=== PATIENT | male | born 1965 | race Hispanic/Latino ===

== ENCOUNTER 2018-03-21 16:03 | Emergency (ER) | payer OTHER ==
[2018-03-21 16:50] LABS: BASOPHILS % (AUTO) 0.4 % (0.0-5.0); EOSINOPHILS % (AUTO) 0.4 % (0.0-8.0); HEMATOCRIT 43.2 % (42-54); LYMPHOCYTES % (AUTO) 3.8 % (21.0-51.0); MEAN CORPUSCULAR HEMOGLOBIN 30.5 pg (27.0-33.0); MEAN CORPUSCULAR HGB CONC 34.8 g/dL (32.0-36.0); MEAN CORPUSCULAR VOLUME 87.5 fL (79-99); MONOCYTES % (AUTO) 7.7 % (3.0-13.0); NEUTROPHILS % (AUTO) 87.7 % (40.0-77.0); PLATELET COUNT (AUTO) 128 K/uL (130-400); RED BLOOD CELL COUNT(AUTO) 4.93 MIL/uL (4.50-6.20); RED CELL DISTRIBUTION WIDTH 15.5 % (11.0-15.5); WHITE BLOOD COUNT (AUTO) 6.2 K/uL (4.8-10.8)
[2018-03-21 17:25] LABS: ALBUMIN 3.7 g/dL (3.5-5.0); BILIRUBIN,TOTAL 1.3 mg/dL (0.2-1.0); CREATININE 0.8 mg/dL (0.5-1.5); POTASSIUM 3.6 mmol/L (3.5-5.1); TOTAL PROTEIN, SERUM 7.2 g/dL (6.0-8.3)
[2018-03-21] MEDS ORDERED: ONDANSETRON HCL 4 MG/2 ML VIAL ONE (18:03)
[2018-03-21] MEDS ORDERED: MORPHINE SULFATE 8 MG/ML VIAL ONE (18:04)
[2018-03-21 18:07] LABS: APPEARANCE,URINE Clear (CLEAR); BILIRUBIN,URINE Negative (NEGATIVE); COLOR,URINE Yellow (YELLOW); GLUCOSE, URINE (UA) Negative (NEGATIVE); KETONES,URINE Negative (NEGATIVE); LEUKOCYTE ESTERASE ,URINE Negative (NEGATIVE); NITRATE,URINE Negative (NEGATIVE); OCCULT BLOOD,URINE Negative (NEGATIVE); PH,URINE 5.5 (5.0-8.0); PROTEIN,URINE Negative (NEGATIVE)
[2018-03-21] MEDS ORDERED: IOPAMIDOL-370 75 ML VIAL IV ONE (18:16)
== END 2018-03-21 19:28 | disposition home or self-care (01) ==
LOC: EDH 16:03
DX: K52.9 Noninfective gastroenteritis and colitis, unspecified (principal); Z98.890 Other specified postprocedural states; Z87.891 Personal history of nicotine dependence
CPT/HCPCS: 36415; 74177; 80053; 81003; 82550; 83690; 84484; 85025; 93005; 96374; 96375; 99285; J2270; J2405; Q9967

== ENCOUNTER 2025-07-21 03:16 | Observation (INO) | payer OTHER ==
[~2025-07-21] VITALS: Ht 167.6 cm; Wt 69.9 kg
--- NOTE | 2025-07-21 03:30 | ERN ---
ED Note History of Present Illness Stated Complaint: LOWER ABD PAIN WITH N/V ONSET 0130 Chief Complaint: Abdominal Pain Time Seen by MD: 03:22 Dictation: This is a 60-year-old male who presented via EMS for evaluation of lower abdominal pain and nausea vomitings that started at 1:30 p.m.. Apparently patient was diagnosed with leukemia recently and he gets injections into his abdominal wall weekly. Details are unclear. He visited [place] with family and ate shrimp and other food. No other family members are sick. He stated that his last bowel movement was yesterday. He has been taking tramadol for pain. No history of fever chills or rigors. No hematemesis or melena. The abdominal pain is mostly in the hypogastric area and bilateral lower quadrants. Eventually came and offered more information stating that she gave him lactulose earlier today not knowing what to do with his abdominal pain. She thought he might be constipated as he has been taking Ultram Temperature 97.9 pulse 71 respirations 18 blood pressure 150/75 with a pulse oximetry of 96% on room air His medical problems include nephrolithiasis, leukemia-unclear type and treatm ent. Please note I do not have any old records or labs to compare Allergies: Coded Allergies: No Known Drug Allergies (Unverified Allergy, Unknown, 07/21/25) Past Medical History Past Medical History: Kidney Stone, Other Additional Past Medical Hx: LEUKEMIA Surgical History: None Family History: Negative RN Note Reviewed/Agreed w/PFSH: Yes Review of System Dictation Constitutional: Negative for fever,chills, and weight loss Eyes: Negative for injury, pain,redness, and discharge ENT: Negative for injury,pain or swelling Cardiovascular: Negative for chest pain, palpitations, and edema Respiratory: Negative for shortness of breath, cough, and wheezing, Abdomen/GI: Positive for lower abdominal pain, nausea, vomiting, denied diarrhea, and constipation Back: Negative for injury and pain : Negative for injury, bleeding and discharge MS/Extremity: Negative for injury and deformity Skin: Negative for rash, and discoloration Neuro: Negative for headache, weakness, numbness, tingling, and seizure Psych: Negative for suicide ideation, homicidal ideation, and hallucinations Initial Vital Sign VS Vital Signs Date Time Temp Pulse Resp B/P (MAP) Pulse Ox O2 Delivery O2 Flow Rate FiO2 07/21/25 03:17 97.9 71 18 150/75 96 Room Air 0 07/21/25 03:36 21 Physical Exam Dictation General: awake, alert, NAD thin male Head/Face: Normocephalic, atraumatic Eyes: PERRL, EOMI, vision at baseline ENT: oral cavity clear, TMs clear, no signs of infection Neck: Trachea midline, supple, no nuchal rigidity Cardiovascular: RRR, normal S1/S2, No MRGs, no JVD Respiratory: CTAB, no respiratory distress, No rales or wheezes Abdomen: Soft, mild tenderness in the lower abdomen non-distended, normal bowel sounds, no guarding or rebound. Skin: Warm, dry, normal turgor, no rash MS/Extremity: Pulses equal, no cyanosis, neurovascular intact, FROM Neuro: COAx4, GCS 15, strength 5/5, CN 2-12 intact, normal cerebellar exam, normal gait, Psych: Normal behavior, mood, and affect normal Extremities-trace edema without any palpable cords, Homans sign is negative Results (Laboratory/Radiology) Laboratory/Radiology Laboratory Tests Test 07/21/25 03:33 07/21/25 04:42 White Blood Count 19.9 K/uL (4.8-10.8) H Red Blood Count 3.81 MIL/uL (4.50-6.20) L Hemoglobin 11.3 g/dL (14.0-18.0) L Hematocrit 33.8 % (42-54) L Mean Corpuscular Volume 88.7 fL (79-99) Mean Corpuscular Hemoglobin 29.7 pg (27.0-33.0) Mean Corpuscular Hemoglobin Concent 33.4 g/dL (32.0-36.0) Red Cell Distribution Width 17.1 % (11.0-15.5) H Platelet Count 95 K/uL (130-400) L Mean Platelet Volume 12.1 fL (7.5-10.5) H Immature Granulocyte % (Auto) 1.4 % (0-1) H Neutrophils (%) (Auto) 80.0 % (40.0-77.0) H Lymphocytes (%) (Auto) 4.5 % (21.0-51.0) L Monocytes (%) (Auto) 12.7 % (3.0-13.0) Eosinophils (%) (Auto) 0.9 % (0.0-8.0) Basophils (%) (Auto) 0.5 % (0.0-5.0) Neutrophils # (Auto) 16.0 K/uL (1.8-7.7) H Lymphocytes # (Auto) 0.9 K/uL (1.0-4.8) L Monocytes # (Auto) 2.5 K/uL (0.1-1.0) H Eosinophils # (Auto) 0.17 K/uL (0.00-0.70) Basophils # (Auto) 0.09 K/uL (0.00-0.20) Absolute Immature Granulocyte (auto 0.27 K/uL (0-1) Nucleated Red Blood Cells 0.0 % (0.0-0.19) Urine Color YELLOW (YELLOW) Urine Appearance CLEAR (CLEAR) Urine pH 5.5 (5.0-8.0) Urine Specific [place] 1.042 (1.001-1.031) Urine Protein 30 mg/dL (NEGATIVE) H Urine Glucose (UA) NEGATIVE mg/dL (NEGATIVE) Urine Ketones NEGATIVE mg/dL (NEGATIVE) Urine Occult Blood NEGATIVE (NEGATIVE) Urine Nitrate NEGATIVE (NEGATIVE) Urine Bilirubin NEGATIVE mg/dL (NEGATIVE) Urine Urobilinogen 2.0 mg/dL (0.2-1.0) H Urine Leukocyte Esterase NEGATIVE Russell/uL Urine RBC 2-5 /HPF (0-1) H Urine WBC 2-5 /HPF (0-1) H Urine Bacteria None /HPF (None Seen) Sodium Level 140 mmol/L (136-145) Potassium Level 3.7 mmol/L (3.5-5.1) Chloride Level 107 mmol/L (101-111) Carbon Dioxide Level 25 mmol/L (21-32) Blood Urea Nitrogen 18 mg/dL (7-18) Creatinine 0.7 mg/dL (0.5-1.3) Glomerular Filtration Rate Calc 105 mL/min (>90) Random Glucose 115 mg/dL (70-105) H Total Calcium 8.6 mg/dL (8.5-10.1) Lipase 33 U/L (16-77) Lactic Acid Level 1.8 mmol/L (0.8-2.5) Labs Reviewed?: Yes CT Scan Comment: REASON: lower abdominal pain N?V ORDERING PHYSICIAN: BENY LEON MD PROCEDURE: ABD PELVWO - CT ABD/PEL WO CON RENAL/APPY EXAM: CT Abdomen and Pelvis without IV contrast CLINICAL HISTORY: Lower abdominal pain. Nausea and vomiting. TECHNIQUE: Thin collimated axial CT images of the abdomen and pelvis were obtained, with sagittal and coronal reformatted images also submitted. A CT scan is done according to ALARA (As Low As Reasonably Achievable). CONTRAST: None. COMPARISON: CT abdomen and pelvis dated 03/21/2025. FINDINGS: The included lungs are clear. Volume redistribution of the liver with a lobulated hepatic contour, compatible with liver cirrhosis. Moderate to severe splenomegaly measures up to 21.2 cm in the long axis. Mild portosystemic collaterals in the epigastrium. No focal abnormality within the gallbladder, pancreas, adrenals, or kidneys. The urinary bladder is suboptimally distended and grossly unremarkable. The prostate is within normal limits. Small, uncomplicated fat-containing inguinal hernias bilaterally. Mildly dilated and fluid-filled large bowel loops. The small bowel loops are normal in caliber. Unremarkable appendix measures up to 5 mm in diameter. Mild calcific atherosclerotic disease in the abdominal aorta and iliac arteries. No pathological lymphadenopathy in the abdomen or pelvis. No ascites or pneumoperitoneum. No acute bony abnormality is evident. Degenerative osseous changes. IMPRESSIONS: Mildly dilated and fluid-filled large bowel loops, this is a nonspecific finding and may be seen in the clinical setting of poor water resorption and acute colitis. No acute appendicitis is evident. Liver cirrhosis. Moderate to severe splenomegaly. Portosystemic collaterals in the epigastrium. Small, uncomplicated fat-containing inguinal hernias bilaterally. Compared to the prior study, there is no significant interval change. /Justin DICTATED BY: LESIA PIERRE Jr., MD DATE: 07/21/25525 ELECTRONICALLY SIGNED BY: LESIA PIERRE Jr., MD DATE: 07/21/25525 ED Course ED Course Orders Procedure Category Date Status Time Cbc With Differential LAB 07/21/25 In Process 03:18 Basic Metabolic Panel LAB 07/21/25 Complete 03:18 Lipase LAB 07/21/25 Complete 03:18 Urinalysis Profile LAB 07/21/25 Complete 03:18 Ct Abd/Pel Wo Con CT 07/21/25 Resulted Renal/Appy 03:33 0.9%Nacl 1000ml (Ns PHA 07/21/25 Complete 1000ml) 04:30 Morphine 2mg Syg PHA 07/21/25 Complete (Morphine 2mg Syg) 04:30 Ondansetron 4mg Inj PHA 07/21/25 Complete (Zofran 4mg Inj) 04:30 Blood Cult JOHN 07/21/25 In Process 04:27 Lactic Acid LAB 07/21/25 Complete 04:27 Zosyn 3.375gm+Ns 50ml PHA 07/21/25 Complete (Zosyn 3.375gm+Ns 05:00 Edm Admit Bridge Order ADM 07/21/25 Transmitted 05:13 Current Medications Medications (Trade) Dose Ordered Sig/Kasia Route PRN Reason Start Time Stop Time Status Last Admin Dose Admin Morphine Sulfate (morPHINE 2MG SYG) 2 mg ONCE ONCE IVP 07/21/25 04:30 07/21/25 04:31 DC 07/21/25 04:35 Ondansetron HCl (zoFRAN 4MG INJ) 4 mg ONCE ONCE IVP 07/21/25 04:30 07/21/25 04:31 DC 07/21/25 04:35 Piperacillin Sod/ Tazobactam Sod (Zosyn 3.375gm+NS 50ml) 3.375 gm ONCE ONCE IV 07/21/25 05:00 07/21/25 05:01 DC 07/21/25 04:58 Sodium Chloride 1,000 ml @ 0 mls/hr ONCE ONCE IV 07/21/25 04:30 07/21/25 04:31 DC 07/21/25 04:34 Vital Signs Date Time Temp Pulse Resp B/P (MAP) Pulse Ox O2 Delivery O2 Flow Rate FiO2 07/21/25 03:36 97.9 68 18 129/72 98 Room Air* 0 21 07/21/25 03:17 97.9 71 18 150/75 96 Room Air 0 We will perform diagnostic labs, advanced imaging and administer medications according to the patient's complaint. Once the results are available, will review and personally interpreted the labs to rule out any acute life- threatening emergency the trach require immediate intervention and treatment. I will then re-evaluate the patient after treatment and diagnostic exams have return to determine whether the patient requires any further testing, can safely be discharged home or need further admission to hospital for additional treatment and evaluation. 4:10 a.m. labs reviewed CBC showed a white count of 19.9 hemoglobin of 11.3 platelets 26109 BNP 7 is with a normal limits lipase is 33. 4:[address] scan of the abdomen and pelvis was done which showed hepatosplenomegaly cirrhotic changes signs of portal hypertension as well as dilated loops of large bowel suggestive of colitis. Patient remains in extreme abdominal pain with cramping and I updated patient and spouse on available lab results as well as CT scan findings and recommended admission to the hospital in view of his immunocompromised state. They both are agreeable. 5:15 a.m. patient accepted by Jennifer mid-level provider for hospitalist group for admission and further management Medical Decision Making MDM The differential diagnosis entertained at this time includes appendicitis, gastroenteritis, gastritis, cholecystitis, pancreatitis, diverticulitis enterocolitis A full comprehensive workup will be performed to identify the underlying problem. The patient will be monitored closely throughout the emergency department stay. The disposition will depend on the workup results and frequent re-evaluations Rationale: Tests considered and ordered secondary to shared decision making include: labs, ECG and radiology Previous outside records reviewed: Old ER visits. Risk of complication and/or morbidity or mortality of patient management: None Medications-Per medication reconciliation Need for hospitalization: Patient does meet criteria for hospitalization. Need for emergency major/minor surgery: No There are no social concerns with this patient. Prescription drug management Prescriptions will include symptomatic care Patient's prior external medical records from other ER visits were reviewed by me as indicated. Prior testing and results from previous visits were reviewed. Prior tests were taken into account with medical decision making and resource utilization, independent historian/historians were used to obtain complete medical history. I independently interpreted the test that were performed, results were reviewed by me and considered findings on radiology if ordered. Medical management and examination interpretation discussions were had by me with other qualified healthcare professionals as indicated for the patient's care. Problem List Problem List: (1) Colitis (2) Leukocytosis (3) Leukemia (4) Immunocompromised state due to drug therapy (5) Thrombocytopenia (6) Intractable nausea and vomiting (7) Cirrhosis of liver DX & DISP Disposition: Inpatient Decision to Admit Time: 04:33 Departure Impression: Primary Impression: Colitis Additional Impressions: Leukocytosis, Leukemia, Immunocompromised state due to drug therapy, Thrombocytopenia, Intractable nausea and vomiting, Cirrhosis of liver Condition: Stable Additional Instructions: Patient was informed of all the diagnostic labs and procedures conducted in the emergency room today and demonstrated understanding of the results. I personally reviewed and interpreted all the diagnostic exams performed in the ER today. The patient will be admitted to the hospital for further treatment and evaluation. Disposition-admit to facility Condition-stable/guarded Course-uncertain at this time Pain status-decreased Assessment-exam unchanged Admission Certification- I certify that the patients status is appropriate and is based on my best clinical judgment and the patient's condition as documented in the medical records Referrals: CAROLINE PERALES (PCP) BENY LEON MD Jul 21, 2025 03:30
[2025-07-21 03:48] LABS: APPEARANCE,URINE CLEAR (CLEAR); GLUCOSE, URINE (UA) NEGATIVE (NEGATIVE); LEUKOCYTE ESTERASE ,URINE NEGATIVE Leu/uL (NEGATIVE); NITRATE,URINE NEGATIVE (NEGATIVE); OCCULT BLOOD,URINE NEGATIVE (NEGATIVE)
[2025-07-21 03:50] LABS: IMMATURE GRANULOCYTE ABSOLUTE 0.27 K/uL (0-1); NUCLEATED RED BLOOD CELLS 0.0 % (0.0-0.19); PLATELET COUNT (AUTO) 95 K/uL (130-400); RED BLOOD CELL COUNT(AUTO) 3.81 MIL/uL (4.50-6.20); RED CELL DISTRIBUTION WIDTH 17.1 % (11.0-15.5); WHITE BLOOD COUNT (AUTO) 19.9 K/uL (4.8-10.8)
[2025-07-21 03:57] LABS: CREATININE 0.7 mg/dL (0.5-1.3); GLOMERULAR FILTR. RATE CALC 105.0 mL/min (>90); GLUCOSE,RANDOM 115.0 mg/dL (70-105); SODIUM SERUM 140.0 mmol/L (136-145); UREA NITROGEN, BLOOD 18.0 mg/dL (7-18)
[2025-07-21 04:09] LABS: ADD UA MICROSCOPIC YES
--- NOTE | 2025-07-21 04:27 | HMCIMG ---
EXAM: CT Abdomen and Pelvis without IV contrast CLINICAL HISTORY: Lower abdominal pain. Nausea and vomiting. TECHNIQUE: Thin collimated axial CT images of the abdomen and pelvis were obtained, with sagittal and coronal reformatted images also submitted. A CT scan is done according to ALARA (As Low As Reasonably Achievable). CONTRAST: None. COMPARISON: CT abdomen and pelvis dated 03/21/2025. FINDINGS: The included lungs are clear. Volume redistribution of the liver with a lobulated hepatic contour, compatible with liver cirrhosis. Moderate to severe splenomegaly measures up to 21.2 cm in the long axis. Mild portosystemic collaterals in the epigastrium. No focal abnormality within the gallbladder, pancreas, adrenals, or kidneys. The urinary bladder is suboptimally distended and grossly unremarkable. The prostate is within normal limits. Small, uncomplicated fat-containing inguinal hernias bilaterally. Mildly dilated and fluid-filled large bowel loops. The small bowel loops are normal in caliber. Unremarkable appendix measures up to 5 mm in diameter. Mild calcific atherosclerotic disease in the abdominal aorta and iliac arteries. No pathological lymphadenopathy in the abdomen or pelvis. No ascites or pneumoperitoneum. No acute bony abnormality is evident. Degenerative osseous changes. IMPRESSIONS: Mildly dilated and fluid-filled large bowel loops, this is a nonspecific finding and may be seen in the clinical setting of poor water resorption and acute colitis. No acute appendicitis is evident. Liver cirrhosis. Moderate to severe splenomegaly. Portosystemic collaterals in the epigastrium. Small, uncomplicated fat-containing inguinal hernias bilaterally. Compared to the prior study, there is no significant interval change. /Fletcher
[2025-07-21] MEDS: 0.9%NACL 1000ML 1,000 ML IV ONE (04:34)
[2025-07-21] MEDS: ZOSYN 3.375GM +NS 50ML IV ONE (04:58)
[2025-07-21] MEDS ORDERED: HYDROcodone/APAP 5/325 1 TAB TABLET PO PRN (05:30)
[2025-07-21] MEDS: LACTATED RINGERS 1000ML 1,000 ML IV SCH (06:38)
--- NOTE | 2025-07-21 07:54 | NUR ---
REPORT GIVEN TO DEWEY.
--- NOTE | 2025-07-21 07:57 | NUR ---
PATIENT TRANSFERRED TO THIRD FLOOR, ROOM 326. PATIENT HAS ALL BELONGINGS AT BEDSIDE.
[2025-07-21 08:00] VITALS: O2SAT 97
--- NOTE | 2025-07-21 08:00 | NUR ---
PT ARRIVED TO ROOM 326. PT ABLE TO AMBULATE FROM STRETCHER TO BED. DENIES ANY NAUSEA AND VOMITING AT THE MOMENT. BED POSITION TO LOWEST POSITION CALL LIGHT WITH IN REACH. AT BEDSIDE.
--- NOTE | 2025-07-21 08:20 | NUR ---
HOME MEDICATIONS PT STATES WILL BRING HOME MEDICATIONS LATER TODAY. 07/21.
--- NOTE | 2025-07-21 08:22 | HP ---
[facility] HISTORY AND PHYSICAL Date of Service: Jul 21, 2025 Time of Service: 08:21 HISTORY OF PRESENT ILLNESS: [ ] This is a 60-year-old male who presented via EMS with chief complaints of nausea and vomiting and lower lower abdominal pain. Onset started earlier this morning at 1:00 a.m.. Abdominal pain state 7/10. Location diffuse, severity: moderate, aggravating factor: PO intake was unable to keep food or liquids. Last bm 1 day ago, patient took lactulose prior to this admission given to had not had a bowel movement since yesterday, reports no diarrhea. The patient reports having , Medudo for breakfast lunch shrimp cocktail and enchiladas for supper No other family members are sick. He has been taking tramadol for pain. No history of fever chills or rigors. No hematemesis or melena. The patient was newly diagnosed of liver cirrhosis in leukemia currently on treatment. Urinalysis negative Imaging CT abdomen and pelvisLiver cirrhosis. Moderate to severe splenomegaly. Patient was seen on the floor patient appears to do much better later this morning no nausea or vomiting we will start him on clears possible discharge in the next 24 hours REVIEW OF SYSTEMS CONSTITUTIONAL: Denies fevers, chills, or night sweats. No unintentional weight loss reported. NEUROLOGICAL: Denies headache, amaurosis fugax, motor weakness, sensory deficit, vertigo/spinning sensation, gait abnormalities, or tremors. ENT: No hearing loss, otalgia, otorrhea, rhinitis, rhinorrhea, hoarseness, or sore throat. CARDIOVASCULAR: Denies any exertional angina, dyspnea on exertion, orthopnea, paroxysmal nocturnal dyspnea, palpitations, life-threatening arrhythmias, c laudication. PULMONARY: Denies any shortness of breath, cough, phlegm/sputum, hemoptysis, pleuritic chest pain. SLEEP: Denies morning headaches, daytime somnolence or napping. Denies difficulty falling asleep, staying asleep, waking from sleep. Denies knowledge of snoring. GASTROINTESTINAL: Denies any type of dysphagia to either liquids or solids. Denies nausea, vomiting, pyrosis, early satiety, abdominal pain, diarrhea, cons tipation, or changes in stool consistency or caliber. Denies coffee-ground emesis, hematemesis, hematochezia, or melanotic stools. GENITOURINARY: Denies frequency, urgency, nocturia, hematuria or incontinence (Storage/Irritative symptoms.) Low urinary stream, straining to void, urinary intermittency or hesitancy, splitting of the voiding stream, terminal dribbling. ENDOCRINOLOGIC: Denies polyuria, polydipsia, polyphagia or heat/cold intolerances. HEMATOLOGIC: Denies thrombophilia/previous clots, or coagulopathy/bleeding disorders. ONCOLOGIC: Denies personal history of malignancy. DERMATOLOGIC: Denies rashes or pruritus. PSYCHIATRIC: Denies any suicidal or homicidal ideation. Denies hallucinations. PAST MEDICAL HISTORY: [ ] PAST SURGICAL HISTORY: [ ] PAST SOCIAL HISTORY: [ ] FAMILY HISTORY: [ ] Coded Allergies: No Known Drug Allergies (Unverified Allergy, Unknown, 07/21/25) PHYSICAL EXAM GENERAL APPEARANCE: The patient is awake, alert, and oriented, in no acute cardiopulmonary distress. NEUROLOGICAL: Cranial nerves II-XII grossly intact. Motor is 5/5 in bilateral upper and lower extremities proximal to distal. No sensory deficits. HEENT: Face is symmetric. Pupils are equal and reactive. Extraocular movements are intact. NECK: Supple. No JVD. No thyromegaly. No submental, submandibular, pre- /postauricular, occipital or supraclavicular lymphadenopathy. CHEST: Normal chest expansion. No Telemetry. LUNGS: Absence of any rales, rhonchi or any wheezing. CARDIOVASCULAR: Regular. S1 and S2 normal. No appreciable rubs, murmurs or gallops. ABDOMEN: Soft, nontender, and nondistended. There is no rebound, voluntary guarding, or rigidity. : Deferred. No Rivas. EXTREMITIES: Non-edematous and not cyanotic. No clubbing. Good capillary refill. SKIN: No skin breakdown. Vital Sign (Last 24 Hours) 07/21/25 07:52 Temp 97.9 Pulse 64 Resp 18 B/P (MAP) 100/63 Pulse Ox 96 O2 Delivery Room Air* O2 Flow Rate 0 FiO2 21 LABS: Laboratory: Test 07/21/25 07:37 07/21/25 04:42 07/21/25 03:33 Range/Units Whole Blood Glucose 93 70-110 MG/DL Lactic Acid Level 1.8 0.8-2.5 mmol/L White Blood Count 19.9 H 4.8-10.8 K/uL Red Blood Count 3.81 L 4.50-6.20 MIL/uL Hemoglobin 11.3 L 14.0-18.0 g/dL Hematocrit 33.8 L 42-54 % Mean Corpuscular Volume 88.7 79-99 fL Mean Corpuscular Hemoglobin 29.7 27.0-33.0 pg Mean Corpuscular Hemoglobin Concent 33.4 32.0-36.0 g/dL Red Cell Distribution Width 17.1 H 11.0-15.5 % Platelet Count 95 L 130-400 K/uL Mean Platelet Volume 12.1 H 7.5-10.5 fL Immature Granulocyte % (Auto) 1.4 H 0-1 % Neutrophils (%) (Auto) 80.0 H 40.0-77.0 % Lymphocytes (%) (Auto) 4.5 L 21.0-51.0 % Monocytes (%) (Auto) 12.7 3.0-13.0 % Eosinophils (%) (Auto) 0.9 0.0-8.0 % Basophils (%) (Auto) 0.5 0.0-5.0 % Neutrophils # (Auto) 16.0 H 1.8-7.7 K/uL Lymphocytes # (Auto) 0.9 L 1.0-4.8 K/uL Monocytes # (Auto) 2.5 H 0.1-1.0 K/uL Eosinophils # (Auto) 0.17 0.00-0.70 K/uL Basophils # (Auto) 0.09 0.00-0.20 K/uL Absolute Immature Granulocyte (auto 0.27 0-1 K/uL Nucleated Red Blood Cells 0.0 0.0-0.19 % White Cell Morphology Comment See comments Urine Color YELLOW YELLOW Urine Appearance CLEAR CLEAR Urine pH 5.5 5.0-8.0 Urine Specific [place] 1.042 H 1.001-1.031 Urine Protein 30 H NEGATIVE mg/dL Urine Glucose (UA) NEGATIVE NEGATIVE mg/dL Urine Ketones NEGATIVE NEGATIVE mg/dL Urine Occult Blood NEGATIVE NEGATIVE Urine Nitrate NEGATIVE NEGATIVE Urine Bilirubin NEGATIVE NEGATIVE mg/dL Urine Urobilinogen 2.0 H 0.2-1.0 mg/dL Urine Leukocyte Esterase NEGATIVE NEGATIVE Russell/uL Urine RBC 2-5 H 0-1 /HPF Urine WBC 2-5 H 0-1 /HPF Urine Bacteria None None Seen /HPF Sodium Level 140 136-145 mmol/L Potassium Level 3.7 3.5-5.1 mmol/L Chloride Level 107 101-111 mmol/L Carbon Dioxide Level 25 21-32 mmol/L Blood Urea Nitrogen 18 7-18 mg/dL Creatinine 0.7 0.5-1.3 mg/dL Glomerular Filtration Rate Calc 105 >90 mL/min Random Glucose 115 H 70-105 mg/dL Total Calcium 8.6 8.5-10.1 mg/dL Lipase 33 16-77 U/L Current Medications Medications (Trade) Dose Ordered Sig/Kasia Route PRN Reason Start Time Stop Time Status Last Admin Dose Admin Acetaminophen (TYLenol 325MG TAB) 650 mg Q6H PRN PO FEVER/MILD PAIN LEVEL 1-3 07/21/25 05:30 08/20/25 05:29 Acetaminophen (TYLenol 650MG SUPPOSITORY) 650 mg Q6H PRN RC FEVER / MILD PAIN 1-3 IF NPO 07/21/25 05:30 08/20/25 05:29 Acetaminophen/ Hydrocodone Bitart (NORco 5/325MG) 1 tab Q6H PRN PO MILD PAIN (1-3) 07/21/25 05:30 07/26/25 05:29 Insulin Human Regular (humuLIN R 100 UNIT/ML 3ML) INSULIN SLIDING SCAL... ACHS SQ 07/21/25 07:30 08/20/25 07:29 Labetalol HCl (TRANdate 20MG SYG) 10 mg Q2H PRN IV SBP GREATER THAN 180 07/21/25 05:30 08/20/25 05:29 Lactated Ringer's 1,000 ml @ 75 mls/hr [id number] IV 07/21/25 05:30 08/20/25 05:29 07/21/25 06:38 75 MLS/HR Ondansetron HCl (zoFRAN 4MG INJ) 4 mg Q6H PRN IVP NAUSEA/VOMITING 07/21/25 05:30 08/20/25 05:29 Piperacillin Sod/ Tazobactam Sod (Zosyn 3.375gm+NS 50ml) 3.375 gm Q8H IVPB 07/21/25 13:00 07/31/25 12:59 Sodium Chloride (NS 50ml) 50 ml AD IV 07/21/25 13:00 08/20/25 12:59 Temazepam (restORIL 15 MG CAP) 15 mg HS PRN PO INSOMNIA/SLEEP 07/21/25 05:30 08/20/25 05:29 DIAGNOSTICS / RADIOLOGY: [ ] ASSESSMENT: acute gastroenteritis Leukemia on treatment Immunosuppressive state Constipation PLAN: [ ] Admit: Medical-surgical floor condition: Guarded Status: We will call IVF: NS at 75 mL/hour Consultants Antibiotics: Zosyn IV every 8 hours Labs cbc, cmp, mag+ monitor renal failure and electrolytes Replace electrolytes as needed as per protocol to keep potassium above 4.0 magnesium 2.0. Home medications pending to be reviewed by RN nurse. PRN: MEDICATIONS Tylenol 650 mg po every 4 hrs for fever zofran 4 mg IV every 6 hrs for n/v Hydralazine 5 mg IV every 4 hrs systolic pressure > 160 bowel regiment: lactulose 20 gm PO BID PRN constipation Pain management: [place] 5/325 as needed for pain Supportive measures: DVT ppx, GI ppx all questions answered time spent: > 35 min Supervising MD: Dr. Soliz c/d This document was generated in part using voice recognition software, occasional wrong word or sound alike substitutions may have occurred due to the inherent limitations of voice recognition software. Read the chart carefully and recognize using context, where the substitutions have occurred. Although every effort was made to edit the content, stick inserter and typing errors may occur ADVANCED CARE PLANNING 1. Which of the following were discussed? Hospice Care - Yes / No Therapeutic options - Yes / No Advance Directives - Yes / No Other discussions - 2. Discussed with who? 3. Voluntary nature of this service was explained to the patient? Yes / No 4. Amount of time spent - 5. Reviewed by Physician? (if this service was performed by NPP) Yes / No ATTESTATION BY PHYSICIAN I have seen and examined the patient. I reviewed the documentation, medical decision making, and treatment plan as noted by the mid-level provider above. I agree with the findings and plan of care. LAMINE SOLIZ MD, ELIZABETH DIRECTOR OF PUPIL PERSONNEL PROGRAM Jul 21, 2025 08:22
[2025-07-21 12:00] VITALS: BP 109/69; PULSE 63; RESP 20
[2025-07-21] MEDS ORDERED: 0.9%NACL 50ML IV SCH (13:00)
[2025-07-21] MEDS: ZOSYN 3.375GM +NS 50ML IVPB SCH (13:44)
[2025-07-21] MEDS: LACTULOSE 20 GM/30 ML UDCUP PO PRN (15:53)
[2025-07-21 16:00] VITALS: BP 114/65; PULSE 63; RESP 19; TEMP 97.9
[2025-07-21 19:45] VITALS: O2SAT 96
[2025-07-21 20:00] VITALS: BP 117/66; PULSE 68; RESP 20; TEMP 98
[2025-07-22] VITALS: BP 123/59; PULSE 78; RESP 20; TEMP 98.1
[2025-07-22 04:00] VITALS: BP 116/66; PULSE 68; RESP 20; TEMP 98
[2025-07-22 06:21] LABS: NUCLEATED RED BLOOD CELLS 0.0 % (0.0-0.19); PLATELET COUNT (AUTO) 73.0 K/uL (130-400); RED BLOOD CELL COUNT(AUTO) 3.41 MIL/uL (4.50-6.20); RED CELL DISTRIBUTION WIDTH 17.1 % (11.0-15.5); WHITE BLOOD COUNT (AUTO) 8.8 K/uL (4.8-10.8)
[2025-07-22 06:37] LABS: CREATININE 0.7 mg/dL (0.5-1.3); GLOMERULAR FILTR. RATE CALC 105.0 mL/min (>90); GLUCOSE,RANDOM 87.0 mg/dL (70-105); PHOSPHORUS 3.9 mg/dL (2.5-4.9); SODIUM SERUM 141.0 mmol/L (136-145); UREA NITROGEN, BLOOD 11.0 mg/dL (7-18)
--- NOTE | 2025-07-22 07:00 | NUR ---
PATIENT UPDATE PT WAS SCREAMING AT THE TOP OF HIS VOICE LAST NIGHT WHEN WE'RE DOING A BEDSIDE REPORT. STATED THAT NOBODY IS DOING ANYTHING ABOUT HIS CONSTIPATION. WENT AHEAD AND CALLED JACKIE [employer]AK [employer] TO GET AN ORDER FOR FLEETS ENEMA WHICH WAS GIVEN RIGHT AWAY AND WHICH HELPED THE PATIENT HAVE A VERY LARGE BOWEL MOVEMENT. STARTED TO CALM DOWN AFTER THE RELIEF FROM THE CONSTIPATION, SLEPT COMFORTABLY THE WHOLE NIGHT.
[2025-07-22 08:00] VITALS: BP 122/68; PULSE 73; RESP 19; TEMP 98.1
[2025-07-22 09:00] VITALS: O2SAT 97
[2025-07-22 12:00] VITALS: BP 115/68; PULSE 70; RESP 21; TEMP 98.1
--- NOTE | 2025-07-22 14:00 | NUR ---
MET W PATIENT/ FAMILY FOR DC PLANNING. PATIENT STATES WAS DIAGNOSIS WITH LEUKEMIA ABOUT 4 MONTHS ABO, HAS CHEMO 5 DAYS ON 3 WEEKS OFF. WORKS FOR [employer], STILL EMPLOYED. PHONE NUMBERS VERIFIED AND CHANGES SENT TO REGISTRATION FOR UPDATES. PATIENT STILL FULLY ACTIVE AND INDEPENDENT IN ALL ADLS, AND NO DME/ SERVICES. LIVES WITH CHILDREN AND SPOUSE, WHO WILL SUPPLY TRANSPORT. DENIES FINACIAL STRAIN. Addendum: 07/22/25 at 1832 by EHSAN MOORE RN CM Amended: Links added.
--- NOTE | 2025-07-22 15:38 | DS ---
Discharge Summary Hospital Course Summary: This is a 60-year-old male who presented via EMS with chief complaints of nausea, vomiting, and lower abdominal pain. Onset was earlier at 1:00 a.m. on 07/21/25. He rated the abdominal pain at 7/10, location is diffuse, severity as moderate, aggravating factor was any oral intake and was unable to keep food or liquids. His last bowel movement was one day ago, patient took lactulose prior to this admission given that he had not had a bowel movement for a day, reports no diarrhea. The patient reported having , Medudo for breakfast lunch shrimp cocktail and enchiladas for supper. No other family members are sick. He has been taking tramadol for pain. No history of fever chills or rigors. No hematemesis or melena. The patient was newly diagnosed of liver cirrhosis in leukemia currently on treatment with azacitidine. On physical exam patient had diffuse bloating of the abdomen and had no focal tenderness. His CT abdomen showed mildly dilated and fluid-filled large bowel loops, which is a nonspecific finding and may be seen in the clinical setting of poor water resorption and acute colitis. He also had liver cirrhosis and moderate to severe splenomegaly. On admission patient white cell count was elevated and platelets were low, consistent with his recent diagnosis of leukemia. Patient was admitted to be observed for a period of 24 hours. During hospitalization patient was given a Fleet enema for his constipation and he had several bowel movements overnight. Since evacuating his bowels patient reports significant improvement and no longer complains of abdominal pain, nausea, vomiting, and diarrhea. Patient was able to tolerate clear liquids and diet advanced was done within the hospitalization showing tolerability. Patient is not totally sure about his type of leukemia however he knows that he is following Dr. Guajardo and receiving chemotherapy with azacitidine. During hospitalization his hemoglobin fell by 1 point from 11.3-10.2. Patient does not notice blood in the stools and acknowledges that he never had a screening colon oscopy. Patient will be discharged home in stable condition and was advised about increasing fiber intake and maintaining regular physical activity to have a bowel regimen. Patient will be sent home on p.r.n. lactulose for constipation. Patient was advised to follow up with his PCP in 2-3 days and obtain a referral for screening for colon cancer. Patient was advised to follow up with Dr. Guajardo to receive chemotherapy for leukemia. [employer](s): NONE Procedure(s): [facility] [address] [place], [place] [id number] IMAGING REPORT Signed PATIENT: LADI BARNARD MR#: [id number] : 1965 SEX: M AGE: 60 LOCATION: ED ORDER 3 STATUS: REG ER REPORT#: [id number] SERVICE REASON: lower abdominal pain N?V ORDERING PHYSICIAN: BENY LEON MD PROCEDURE: ABD PELVWO - CT ABD/PEL WO CON RENAL/APPY EXAM: CT Abdomen and Pelvis without IV contrast CLINICAL HISTORY: Lower abdominal pain. Nausea and vomiting. TECHNIQUE: Thin collimated axial CT images of the abdomen and pelvis were obtained, with sagittal and coronal reformatted images also submitted. A CT scan is done according to ALARA (As Low As Reasonably Achievable). CONTRAST: None. COMPARISON: CT abdomen and pelvis dated 03/21/2025. FINDINGS: The included lungs are clear. Volume redistribution of the liver with a lobulated hepatic contour, compatible with liver cirrhosis. Moderate to severe splenomegaly measures up to 21.2 cm in the long axis. Mild portosystemic collaterals in the epigastrium. No focal abnormality within the gallbladder, pancreas, adrenals, or kidneys. The urinary bladder is suboptimally distended and grossly unremarkable. The prostate is within normal limits. Small, uncomplicated fat-containing inguinal hernias bilaterally. Mildly dilated and fluid-filled large bowel loops. The small bowel loops are normal in caliber. Unremarkable appendix measures up to 5 mm in diameter. Mild calcific atherosclerotic disease in the abdominal aorta and iliac arteries. No pathological lymphadenopathy in the abdomen or pelvis. No ascites or pneumoperitoneum. No acute bony abnormality is evident. Degenerative osseous changes. IMPRESSIONS: Mildly dilated and fluid-filled large bowel loops, this is a nonspecific finding and may be seen in the clinical setting of poor water resorption and acute colitis. No acute appendicitis is evident. Liver cirrhosis. Moderate to severe splenomegaly. Portosystemic collaterals in the epigastrium. Small, uncomplicated fat-containing inguinal hernias bilaterally. Compared to the prior study, there is no significant interval change. 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 PROCEDURES: None IMAGING (S) : report attached to summary MICROBIOLOGY : report attached to summary ACTIVITY : ad gurjit HOME MEDICATIONS : Continued Home Medications: Active Scripts Lactulose (Lactulose) 10 Gram/15 Ml Solution, 30 ML PO BID PRN for constipation for 30 Days, #500 ML 0 Refills Prov:EASTON CARDENAS MD 07/22/25 New Medications: Lactulose (Lactulose) 10 Gram/15 Ml Solution 30 ML PO BID PRN for constipation for 30 Days, #500 ML 0 Refills Time spent arranging discharge: 1-30 minutes ATTESTATION BY PHYSICIAN I have seen and examined the patient. I reviewed the documentation, medical decision making, and treatment plan as noted by the resident provider above. I agree with the findings and plan of care. James Sánchez MD, HARSHAVARDHA MD Jul 22, 2025 15:38
[2025-07-22] MEDS ORDERED: LACT-441 PO (15:59)
--- NOTE | 2025-07-22 16:47 | NUR ---
DISCHARGE PT PIV DC'D PT VERBALIZED UNDERSTANDING OF DISCHARGE INSTRUCTIONS PT GATHERED AND TOOK ALL BELONGINGS PT HAD NO FURTHER QUESTIONS AT TIME OF DISCHARGE
== END 2025-07-22 18:45 | disposition home or self-care (01) ==
LOC: EDH 03:16 → EDHIP 05:26 → INTOOBSV 05:26 → 3DH 08:00
PROVIDERS: ADMIT Hospitalist; ATTEND Hospitalist
DX: A08.4 Viral intestinal infection, unspecified (principal); C95.90 Leukemia, unspecified not having achieved remission; K59.00 Constipation, unspecified; K74.60 Unspecified cirrhosis of liver; D69.6 Thrombocytopenia, unspecified; Z79.899 Other long term (current) drug therapy; Z98.890 Other specified postprocedural states
CPT/HCPCS: 96361 ×4; 96366 ×4; 96375 ×2; 99285; 80048 ×2; 83690; 85025; 87040 ×2; 82948 ×5; 83605; 81001; 36415 ×2; 74176; 96365; 83735; 84100; 85027; 85014; 85018; J2270; J2405; J2543 ×5; J1171; G0378 ×2